=== PATIENT | female | born 1980 | race Caucasian/White ===

== ENCOUNTER 2020-10-07 17:17 | Emergency (ER) | payer BC, OTHER ==
[~2020-10-07] VITALS: Ht 167.6 cm; Wt 107.0 kg
[2020-10-07 17:23] VITALS: BP 133/99
[2020-10-07] MEDS ORDERED: BACL5TAB PO (18:43)
[2020-10-07] MEDS: KETOROLAC 30 MG/ML VIAL IM ONE (18:52)
[2020-10-07] MEDS ORDERED: KETOROLAC 30 MG/ML VIAL IM SCH (19:00)
[2020-10-07 19:51] VITALS: BP 133/99
== END 2020-10-07 19:51 | disposition home or self-care (01) ==
LOC: MED 17:17
DX: M79.675 Pain in left toe(s) (principal); M54.9 Dorsalgia, unspecified; V98.8XXA Other specified transport accidents, initial encounter; Y93.89 Activity, other specified; Y92.89 Other specified places as the place of occurrence of the external cause; Y99.8 Other external cause status
CPT/HCPCS: 73590; 73660; 96372; 99284; J1885